=== PATIENT | female | born 1945 | race Caucasian/White ===

== ENCOUNTER 2023-05-28 20:54 | Emergency (ER) | payer MEDICARE, OTHER, SELFPAY ==
[2023-05-28 21:20] VITALS: BP 227/124
[2023-05-28 21:28] VITALS: BP 153/96
[2023-05-28 21:54] VITALS: BP 189/104
[2023-05-28 22:00] VITALS: BP 207/86
[2023-05-28 22:23] VITALS: BP 216/94
[2023-05-28 22:54] LABS: % Basophils 0.7 % (0-2); % Eosinophils 1.4 % (0-6); % Immature Granulocytes 0.3 % (0-0.5); % Lymphocytes 15.1 % (20.5-51.1); % Monocytes 5.8 % (1.7-9.3); % Neutrophils 76.7 % (42.2-75.2); Absolute Basophils 0.1 10^3/uL (0-0.2); Absolute Eosinophils 0.1 10^3/uL (0-0.7); Absolute Lymphocytes 1.5 10^3/uL (1.2-3.4); Absolute Monocytes 0.6 10^3/uL (0.1-0.6); Absolute Neutrophils 7.9 10^3/uL (1.4-6.5); Hematocrit 40.4 % (37.0-47.0); Hemoglobin 13.5 g/dL (12.0-16.0); Mean Corp Hgb Conc. 33.4 g/dL (33.0-37.0); Mean Corpuscular Hgb 30.4 pg (27.0-31.0); Mean Platelet Volume 8.3 fL (7.4-10.4); Nucleated Red Blood Cells % 0 %; Platelet Count 260 10^3/uL (130-400); Red Blood Cell Count 4.44 10^6/uL (4.20-5.40); Red Cell Dist. Width 13.7 % (11.5-14.5); White Blood Cell Count 10.2 10^3/uL (4.8-10.8)
[2023-05-28 23:00] VITALS: BP 175/97
[2023-05-28 23:11] LABS: ALT (SGPT) 16 U/L (0-35); AST (SGOT) 27 U/L (14-36); Albumin 4.6 g/dl (3.5-5.0); Alkaline Phosphatase 66 U/L (38-126); Blood Urea Nitrogen 16 mg/dl (7-17); Calcium 9.5 mg/dl (8.4-10.2); Carbon Dioxide 26 mmol/L (22-30); Chloride 103 mmol/L (98-107); Glucose 123 mg/dl (70-99); Potassium 3.9 mmol/L (3.5-5.1); Sodium 136 mmol/L (135-145); Total Bilirubin 0.6 mg/dl (0.2-1.3); Total Protein 7.5 g/dl (6.3-8.2); eGFR > 60.00
[2023-05-28 23:19] LABS: Troponin I < 0.012 ng/ml
--- NOTE | 2023-05-28 23:34 | ED.GENMED ---
History of Present Illness
<CINDY Ramirez - Last Filed: 05/29/23 01:46>
General
Chief Complaint: Nose Bleed
Source: patient
Exam Limitations: none and clinical condition
Time Seen by Provider: 05/28/23 23:16
Nursing documentation reviewed up to this point in time: agreed with
Travel History
Have you had any contact with someone who has COVID-19?: No
Do you have any symptoms of coronavirus? Fever > 100 degrees, chills, cough, shortness of breath, sore throat, loss of taste or smell, muscle aches, or headache?: No
History of Present Illness
History of Present Illness:
This is a 77 year old female, with a PMH of CAD, HTN, hypothyroidism, and GERD, who presents to the ED c/o nosebleed x 4 hours. Pt states her nose was bleeding consistently for about 4 hours, but it just stopped bleeding a few minutes ago. She was
holding pressure, using ice, and had a nasal tampon in place. She states initially the blood was coming from the left side of her nose but then began coming from the right side as well. She adds that she was swallowing blood which was making her
feel nauseous. She also states she developed epigastric pain 30 minutes ago which she thinks may be due to her reflux or due to the blood. Pt adds that she woke up with a sore throat this morning and she has been taking zinc, vitamin C, and tylenol,
with her last dose at 5 pm. She denies any congestion, SOB, cough, nose pain, GAMBOA, or abdominal pain. She has never experienced a nosebleed like this before.
Pt takes aspirin daily. She denies any alcohol, drug or tobacco use.
Past History
<CINDY Ramirez - Last Filed: 05/29/23 01:46>
Past History
ED Past Medical History: CAD, HTN, Hypercholesterolemia and Hypothyroidism
ED Past Surgical History: Cardiac (cardiac stent LAD), Cholecystectomy, Gynecological (b/l oophorectomy) and Other (hernia)
Patient has exhibited threatening behavior?: No
Social History
Tobacco: Non-smoker
Alcohol: None
Drug: None
Review of Systems
<Fridamarta CINDY Alonso - Last Filed: 05/29/23 01:46>
Review of Systems
Allergies reviewed?: Yes
All Other Systems: ROS reviewed and negative except as documented in HPI and ROS
Constitutional: Reports no symptoms
EENT: Reports sore throat and other (denies congestion or nasal pain)
Respiratory: Reports no symptoms; Denies cough or trouble breathing
Cardiac: Reports no symptoms
ABD/GI: Reports abdominal pain (epigastric pain) and nausea; Denies vomiting, diarrhea or constipated
: Reports no symptoms
Musculoskeletal: Reports no symptoms
Skin: Reports no symptoms
Neurological: Reports no symptoms; Denies headache
Hematologic/Lymphatic: Reports bleeding (nose)
Psychiatric: Reports no symptoms
Phy Exam
<Nery Alonso [facility] - Last Filed: 05/29/23 01:46>
General Physical Exam
General Presentation: mild distress
General age: appears stated age
General Skin: warm and dry
General Habitus: normal
General Mental: alert
General Hydration: dry mucous membranes
ENT Exam
ENT Exam: neck supple, normocephalic, swallowing well and other (dried blood and clots present in b/l nares. R nare view obstructed due to blood. Pt refused exam on left nare due to packing in place)
Eye Exam
Eye Exam: PERRL
Cardiovascular Exam
Cardiovascular Exam: regular rate/rhythm, no edema, no murmur and normal peripheral pulses
Heart Sounds: normal
Pulmonary Exam
Pulmonary Exam: lungs clear, no respiratory distress, no rales, no crackles, no rhonchi, no wheezing and no cough
Oxygen Status: room air
Gastrointestinal Exam
Gastrointestinal Exam: normal bowel sounds, soft, non distended and tender (mild tenderness to palpation epigastric region)
Neurological Exam
Neurological Exam: alert and oriented x3
Musculoskeletal Exam
Musculoskeletal Exam: full ROM and no edema
Skin Exam
Skin Exam: normal color and warm/dry
Psychiatric Exam
Psychiatric Exam: normal mood/affect
Course
<CINDY Ramirez - Last Filed: 05/29/23 01:46>
Orders/Labs/Results
Orders:
Orders
05/28/23 21:06
Electrocardiogram (*1) Urgent
Reason for Study: Tachycardia
EKG- Treatment ONCE
05/28/23 22:22
EKG [Electrocardiogram (*1)] Urgent
Reason for Study: Tachycardia
EKG- Treatment ONCE
05/28/23 22:48
Complete Blood Count/With Diff Urgent
Comprehensive Metabolic Panel Urgent
Troponin I Urgent
05/28/23 23:35
EKG [Electrocardiogram (*1)] Urgent
Reason for Study: Abdominal Pain
05/29/23 01:01
Phenylephrine 1% Extra Strengt [Jamey-Synephrine 1% Nasal [place]] See Dose Instructions NASAL Q4HPRN STA
05/29/23 01:07
Phenylephrine 0.5% Regular Spr [Jamey-Synephrine 0.5% Nasal [place]] 1 spray .ROUTE .STK-MED ONE
05/29/23 01:08
Phenylephrine 0.5% Regular Spr [Jamey-Synephrine 0.5% Nasal [place]] 2 spray NASAL NOW STA
Abnormal Lab Results
05/28/23
22:48
Absolute Neuts (auto) 7.9 H 10^3/uL
(1.4-6.5)
Neutrophils % 76.7 H %
(42.2-75.2)
Lymphocytes % 15.1 L %
(20.5-51.1)
Glucose 123 H mg/dl
(70-99)
05/28/23 22:48
05/28/23 22:48
Vital Signs
Initial and Last Documented VS:
Initial Vital Signs
Pulse Resp Pulse Ox
119 20 96
05/28/23 21:00 05/28/23 21:00 05/28/23 21:00
Last Documented Vital Signs
Pulse Resp BP Pulse Ox
99 17 165/84 98
05/29/23 01:00 05/29/23 00:45 05/29/23 00:00 05/28/23 21:30
<Javon Marquis, - Last Filed: 05/29/23 01:11>
Orders/Labs/Results
Orders:
Orders
05/28/23 21:06
Electrocardiogram (*1) Urgent
Reason for Study: Tachycardia
EKG- Treatment ONCE
05/28/23 22:22
EKG [Electrocardiogram (*1)] Urgent
Reason for Study: Tachycardia
EKG- Treatment ONCE
05/28/23 22:48
Complete Blood Count/With Diff Urgent
Comprehensive Metabolic Panel Urgent
Troponin I Urgent
05/28/23 23:35
EKG [Electrocardiogram (*1)] Urgent
Reason for Study: Abdominal Pain
05/29/23 01:01
Phenylephrine 1% Extra Strengt [Jamey-Synephrine 1% Nasal [place]] See Dose Instructions NASAL Q4HPRN STA
05/29/23 01:07
Phenylephrine 0.5% Regular Spr [Jamey-Synephrine 0.5% Nasal [place]] 1 spray .ROUTE .STK-MED ONE
05/29/23 01:08
Phenylephrine 0.5% Regular Spr [Jamey-Synephrine 0.5% Nasal [place]] 2 spray NASAL NOW STA
Abnormal Lab Results
05/28/23
22:48
Absolute Neuts (auto) 7.9 H 10^3/uL
(1.4-6.5)
Neutrophils % 76.7 H %
(42.2-75.2)
Lymphocytes % 15.1 L %
(20.5-51.1)
Glucose 123 H mg/dl
(70-99)
05/28/23 22:48
05/28/23 22:48
Vital Signs
Initial and Last Documented VS:
Initial Vital Signs
Pulse Resp Pulse Ox
119 20 96
05/28/23 21:00 05/28/23 21:00 05/28/23 21:00
Last Documented Vital Signs
Pulse Resp BP Pulse Ox
99 17 165/84 98
05/29/23 01:00 05/29/23 00:45 05/29/23 00:00 05/28/23 21:30
<CINDY Ramirez - Last Filed: 05/29/23 01:46>
*Critical Care Note
Total Time (30-74mins, 75-104mins- exclusive of procedures): Not Applicable
ED Attending Note
<CINDY Ramirez - Last Filed: 05/29/23 01:46>
-
Portions of this chart may have been created with voice recognition software.� Occasional wrong word or��sound alike� substitutions may have occurred due to the inherent limitations of voice recognition software.
<Javon Marquis DO - Last Filed: 05/29/23 01:11>
ED Attending Note
Patient seen and examined by attending physician: Yes
I performed the substantive portion of visit, reviewed & personally made and approve the management plan that is documented in note by myself or CHER.: Yes
ED Attending Note:
Pleasant 77-year-old female who presents with left anterior epistaxis. She suffered from nosebleed approximate 30 minutes prior to arrival. She is not on any blood thinners. She is hypertensive and does have tachycardia. She did have some
palpitations. Denies any trauma. Bleeding stopped upon arrival. Thorough inspection of the left nare does not show any clotting. I did use cotton tip applicators to try to clean the lyn of the blood and determine the source of the bleeding. I
was unable to locate the etiology of the bleeding. Patient states that bleeding has stopped. Patient was seen in conjunction with the PA student. I have reviewed and agree with the history and treatment plan presented. On my independent physical
exam, patient is awake, alert, and oriented x3. Left nostril has dried blood in it. Heart is regular rate rhythm. Lungs are clear to auscultation bilaterally without wheezes rales or rhonchi. Abdomen is soft without tenderness to palpation.
Reviewed lab work and physical exam findings with patient and son. They are both trained medical equipment technician. Patient wishes to be discharged. Did discuss the negative troponin and the atrial fibrillation to sinus tachycardia EKG change. She
will follow-up with Dr. Morton her mixing and dispensing supervisor. They do not wish to have a repeat troponin at this time.
Discharge Plan
Departure
Patient Disposition: Home (Routine Discharge)
Date of Disposition: 05/29/23
Time of Disposition: 01:02
Patient with high blood pressure during this ER visit?: Yes
Condition: Good
Discharge Problem:
Acute anterior epistaxis, Hypertension
Instructions: Nosebleeds (DC), BLOOD PRESSURE
Prescriptions:
No Action
levothyroxine 100 mcg Tablet
100 mcg PO DAILY
hydrochlorothiazide 25 mg Tablet
25 mg PO DAILY
losartan 100 mg Tablet
100 mg PO DAILY
aspirin 81 mg Tablet,Chewable
81 mg PO DAILY
coenzyme Q10 [Co Q-10] 200 mg Capsule
200 mg PO DAILY
omega 0-hdg-grq-fish oil [Fish Oil] 60-90-500 mg Capsule
1 cap PO DAILY
Probiotic 3 billion cell Capsule
3,000 mmu cells PO DAILY
calcium
1 tab PO DAILY
Patient Comments:
BRAND-OSTEO APPITATE
Black seed oil
1,000 mg PO DAILY
cholecalciferol (vitamin D3) [Vitamin D3] 25 mcg (1,000 unit) Tablet
25 mcg PO DAILY
Versabase Cream Cream
0.25 applic MISCELLANEOUS .2XWEEK
magnesium oxide 400 mg magnesium Tablet
400 mg PO DAILY
atorvastatin 40 mg tablet
40 mg PO QPM Qty: 90 10RF
clopidogrel [clopidogrel] 75 mg tablet
75 mg PO DAILY Qty: 90 10RF
pantoprazole [pantoprazole] 40 mg tablet,delayed release (DR/EC)
40 mg PO DAILY Qty: 90 10RF
nitroglycerin [nitroglycerin] 0.4 mg tablet, sublingual
0.4 mg sublingual [id number] PRN (Reason: chest pain) Qty: 25 5RF
amlodipine 5 mg tablet
5 mg PO DAILY Qty: 90 5RF
Referrals:
Marshall Fitch MD [Family Provider] -
Jett Weaver MD [Active] -
Avery Randolph MD [Active] -
Activity Restrictions/Additional Instructions:
Please use the Jamey-Synephrine as discussed. Use the clamp should the bleeding started again.
It was a pleasure meeting you and taking part in your care. We hope for your continued healing and wellness.
Please read discharge instructions in their entirety. However, they are for general education and may not describe your exact diagnosis at discharge. Information on your ER visit and medical conditions were discussed with you along with appropriate
follow up information...
If indicated, please take your medications as instructed and indicated on discharge paperwork.
Please schedule a follow up appointment as directed. Call to schedule an appointment
Please return to the emergency department with ANY change in, persisting, or worsening of symptoms. If any of your symptoms do not improve, or persist, or become more severe within 6-12 hours, please return to the emergency department for further
care.
Please return to the emergency department if you develop a headache, neck pain/stiffness, fever greater than 100.4F, chest pain, shortness of breath, persistent nausea, vomiting, slurred speech, difficulty walking, numbness/tingling, weakness, signs
of infection or any other symptoms that are worrisome to you.
If you have any questions or concerns please do not hesitate to call the Hospital at or E-mail me directly at [email or web address]
Interventions
Interventions:
*Risk Screen - Suicide Last Done: 05/28/23 21:20
*General Assessment Last Done: 05/28/23 21:20
*Neglect/Abuse Screening Last Done: 05/28/23 21:20
ED- Fall Risk Assessment Last Done: 05/29/23 01:16
*ED COVID-19 Vaccine History Last Done: 05/28/23 21:28
*Nursing Disposition Last Done: 05/29/23 01:16
ED-EENT Assessment Last Done: 05/28/23 21:40
Discharge Date and Time
Discharge Date/Time: 05/29/23 01:18
[2023-05-29] VITALS: BP 165/84
[2023-05-29] MEDS: NEO-SYNEPHRINE 0.5% NASAL SPRAY 2 SPRAY NASAL (01:09)
== END 2023-05-29 01:18 | disposition home or self-care (01) ==
LOC: EMR 20:54
PROVIDERS: Emergency Medicine; EMERGENCY PHYSICIAN Student in an Organized Health Care Education/Training Program; FAMILY PHYSICIAN Family Medicine
DX: R04.0 Epistaxis (principal); I10 Essential (primary) hypertension; I25.10 Atherosclerotic heart disease of native coronary artery without angina pectoris; E03.9 Hypothyroidism, unspecified; K21.9 Gastro-esophageal reflux disease without esophagitis; E78.00 Pure hypercholesterolemia, unspecified; Z79.82 Long term (current) use of aspirin; Z90.49 Acquired absence of other specified parts of digestive tract; Z90.722 Acquired absence of ovaries, bilateral; Z95.5 Presence of coronary angioplasty implant and graft
CPT/HCPCS: 99283; 80053; 84484; 85025; 93005

== ENCOUNTER → 2023-07-01 16:21 | Outpatient (REF) | payer MEDICARE, OTHER, SELFPAY ==
[2023-07-01 18:40] LABS: TSH 1.12 uIU/ml (0.47-4.68)
== END ==
LOC: REG 16:21
PROVIDERS: ATTENDING PHYSICIAN Family Medicine
DX: E03.9 Hypothyroidism, unspecified (principal)
CPT/HCPCS: 36415; 84443

== ENCOUNTER → 2023-07-07 08:31 | Outpatient (REF) | payer MEDICARE, OTHER, SELFPAY | LOC: DHCBC/DCA 08:31 | PROVIDERS: ATTENDING PHYSICIAN Nurse Practitioner; FAMILY PHYSICIAN Family Medicine | DX: R06.09 Other forms of dyspnea (principal) | CPT/HCPCS: 78452; 93017; A9500 ==

== ENCOUNTER → 2023-08-17 10:56 | Outpatient (REF) | payer MEDICARE, OTHER, SELFPAY | LOC: HWRAD 10:56 | PROVIDERS: ATTENDING PHYSICIAN Family Medicine | DX: R91.1 Solitary pulmonary nodule (principal) | CPT/HCPCS: 71250 ==

== ENCOUNTER → 2023-09-07 13:51 | Outpatient (REF) | payer MEDICARE, OTHER, SELFPAY | LOC: HWRAD 13:51 | PROVIDERS: ATTENDING PHYSICIAN Obstetrics & Gynecology; FAMILY PHYSICIAN Family Medicine; REFERRING PHYSICIAN Chiropractor | DX: M54.50 Low back pain, unspecified (principal) | CPT/HCPCS: 72110 ==

== ENCOUNTER → 2024-04-01 13:35 | Outpatient (REF) | payer MEDICARE, OTHER, SELFPAY | LOC: HWWDC 13:35 | PROVIDERS: ATTENDING PHYSICIAN Obstetrics & Gynecology Gynecology; FAMILY PHYSICIAN Family Medicine | DX: Z12.31 Encounter for screening mammogram for malignant neoplasm of breast (principal); E03.9 Hypothyroidism, unspecified | CPT/HCPCS: 36415; 84443 ==

== ENCOUNTER → 2024-07-08 07:20 | Outpatient (REF) | payer MEDICARE, OTHER, SELFPAY ==
[2024-07-08 09:13] LABS: ALT (SGPT) 16 U/L (0-35); AST (SGOT) 21 U/L (14-36); HDL Cholesterol 72 mg/dl; LDL Cholesterol, Calculated 153 mg/dl; Total Cholesterol 238 mg/dl (50-199); Triglyceride 69 mg/dl (10-149); Very Low Density Lipoprotein 13 mg/dl (0-30)
== END ==
LOC: REG 07:20
PROVIDERS: ATTENDING PHYSICIAN Internal Medicine
DX: I25.10 Atherosclerotic heart disease of native coronary artery without angina pectoris (principal); E78.00 Pure hypercholesterolemia, unspecified; Z78.9 Other specified health status
CPT/HCPCS: 36415; 80061; 84450; 84460

== ENCOUNTER → 2024-09-16 07:25 | Outpatient (REF) | payer MEDICARE, OTHER, SELFPAY ==
[2024-09-16 08:26] LABS: % Basophils 0.8 % (0-2); % Eosinophils 3.6 % (0-6); % Immature Granulocytes 0.3 % (0-0.5); % Lymphocytes 32.8 % (20.5-51.1); % Monocytes 6.5 % (1.7-9.3); Absolute Basophils 0.1 10^3/uL (0-0.2); Absolute Eosinophils 0.2 10^3/uL (0-0.7); Absolute Monocytes 0.4 10^3/uL (0.1-0.6); Absolute Neutrophils 3.4 10^3/uL (1.4-6.5); Hematocrit 41.4 % (37.0-47.0); Hemoglobin 13.5 g/dL (12.0-16.0); Mean Corp Hgb Conc. 32.6 g/dL (33.0-37.0); Mean Corpuscular Hgb 30.1 pg (27.0-31.0); Mean Corpuscular Volume 92.2 fL (81.0-99.0); Mean Platelet Volume 8.8 fL (7.4-10.4); Nucleated Red Blood Cells % 0 %; Platelet Count 293 10^3/uL (130-400); Red Blood Cell Count 4.49 10^6/uL (4.20-5.40); Red Cell Dist. Width 13.6 % (11.5-14.5); White Blood Cell Count 6.2 10^3/uL (4.8-10.8)
[2024-09-16 09:30] LABS: ALT (SGPT) 15 U/L (0-35); AST (SGOT) 19 U/L (14-36); HDL Cholesterol 70 mg/dl; LDL Cholesterol, Calculated 165 mg/dl; Magnesium 2.2 mg/dl (1.6-2.3); Total Cholesterol 256 mg/dl (50-199); Triglyceride 105 mg/dl (10-149); Very Low Density Lipoprotein 21 mg/dl (0-30)
[2024-09-16 12:00] LABS: Albumin 4.4 g/dl (3.5-5.0); Alkaline Phosphatase 64 U/L (38-126); Blood Urea Nitrogen 13 mg/dl (7-17); Calcium 10.2 mg/dl (8.4-10.2); Carbon Dioxide 27 mmol/L (22-30); Chloride 109 mmol/L (98-107); Glucose 101 mg/dl (70-99); Potassium 4.6 mmol/L (3.5-5.1); Sodium 143 mmol/L (135-145); Total Bilirubin 0.8 mg/dl (0.2-1.3); eGFR > 60.00
== END ==
LOC: REG 07:25
PROVIDERS: ATTENDING PHYSICIAN Internal Medicine; FAMILY PHYSICIAN Family Medicine
DX: E78.00 Pure hypercholesterolemia, unspecified (principal)
CPT/HCPCS: 36415; 80053; 80061; 83735; 85025

== ENCOUNTER 2024-09-20 17:46 | Emergency (ER) | payer MEDICARE, OTHER, SELFPAY ==
[2024-09-20] VITALS (7 sets, daily range): BP systolic 156–188; BP diastolic 77–123; BMI 25.3
--- NOTE | 2024-09-20 19:05 | ED.GENMED ---
History of Present Illness
General
Chief Complaint: Cardiac Symptoms
Time Seen by Provider: 09/20/24 18:10
History of Present Illness
History of Present Illness:
78-year-old female with history of hypertension, CAD with 1 stent, hyperlipidemia presenting to the emergency department for palpitations. Patient reports intermittent palpitations for the past 3 weeks. She notes that throughout the day today,
heart rate has been fluctuating, with heart rates in the low 100s. Denies any known history of atrial fibrillation or arrhythmias. She is on lisinopril and amlodipine for her blood pressure. Her provisioning specialist is Dr. Weaver. Denies any associated
chest pain or difficulty breathing. Denies fever or sick contacts. Denies any lower extremity edema. Denies additional acute medical complaints
Past History
Past History
ED Past Medical History: CAD, HTN, Hypercholesterolemia and Hypothyroidism
ED Past Surgical History: Cardiac (cardiac stent LAD), Cholecystectomy, Gynecological (b/l oophorectomy) and Other (hernia)
Patient has exhibited threatening behavior?: No
Social History
Tobacco: Non-smoker
Alcohol: None
Drug: None
Phy Exam
Physical Exam
Physical Exam:
General: Well-appearing, no clinical signs of dehydration, nontoxic and in no acute distress
HEENT: protecting airway
Neck: appears supple
CV: Normal heart rate, regular rhythm
Resp: No accessory muscle use, no increased work of breathing, lungs clear to auscultation bilaterally
Abd: Soft and non-distended, no tenderness to palpation
Extremities: No deformities, no swelling
Neuro: alert, no focal neurologic deficit
: deferred
Rectal: deferred
Psych: Normal affect
Skin: Intact
Scores
[id number] Score for Afib Stroke Risk
Age in Years (65=0, 65-74=1, >/=75=2): > or = 75
Sex (Female=+1): Female
Congestive Heart Failure History (Yes=+1): No
Hypertension History (Yes=+1): Yes
Stroke/TIA/Thromboembolism History (Yes=+2): No
Vascular Disease History (Yes=+1): No
Diabetes Mellitus (Yes=+1): No
Score: 4
Anticoagulation Recommendations: Recommend anticoagulation (as validated in nonvalvular fib)
Course
Orders/Labs/Results
Orders:
Orders
09/20/24 17:51
EKG [Electrocardiogram (*1)] Urgent
Reason for Study: Palpitations
EKG- Treatment ONCE
09/20/24 18:49
Diltiazem HCl [Cardizem] 10 mg IV NOW STA
09/20/24 19:13
Complete Blood Count/With Diff Urgent
Comprehensive Metabolic Panel Urgent
Prothrombin Time Urgent
Troponin I Urgent
09/20/24 19:13
Vital Signs
Initial and Last Documented VS:
Initial Vital Signs
Temp Pulse Resp BP Pulse Ox
97.7 F 120 17 188/123 97
09/20/24 17:49 09/20/24 17:49 09/20/24 17:49 09/20/24 17:49 09/20/24 17:49
Last Documented Vital Signs
Temp Pulse Resp BP Pulse Ox
97.7 F 108 17 156/86 97
09/20/24 17:49 09/20/24 18:25 09/20/24 17:49 09/20/24 18:27 09/20/24 18:25
MDM/Problems Addressed
MDM/Problems Addressed:
78-year-old female presenting to the emergency department for palpitations. Vital signs on arrival significant for hypertension.
On exam patient is resting comfortably, no acute distress or discomfort. Initial EKG is reading atrial fibrillation. However while in examination room on monitor, patient appears to be going in and out of this rhythm, unclear if she is in atrial
fibrillation. However, heart rate is jumping from 80s to low 100s. Suspect etiology of her palpitations. Will plan for screening laboratory analysis and will also discuss with cardiology.
In discussion with Dr. Murphy, feels that patient's rhythm more consistent with sinus rhythm and slow atrial tachycardia. Advising against any present anticoagulation, however can start low-dose metoprolol to help decrease her symptoms. Labs are
otherwise unremarkable. Patient in agreement with this plan. Repeat EKG is showing a sinus rhythm, so in agreement that patient more likely has atrial tachycardia. Will start on 12.5 mg metoprolol. Otherwise feel stable for discharge with close
interval follow-up with cardiology for potential outpatient Holter monitor. Patient has an upcoming appointment on October 06, however encouraged that she call the office for potential earlier appointment. Return precautions discussed and patient
verbalized understanding
*EKG
Interpreted by ED Provider?: Yes
EKG Intrepretation Date: 09/20/24
EKG Intrepretation Time: 19:38
Interpretation: abnormal
Comparison EKG: changes noted
Heart Rate: 93
Rate: normal
Rhythm: a-fib
[place]: normal axis
QRS Pattern: normal QRS
Ischemia: no ischemia
*Critical Care Note
Total Time (30-74mins, 75-104mins- exclusive of procedures): Not Applicable
ED Attending Note
-
Portions of this chart may have been created with voice recognition software.� Occasional wrong word or��sound alike� substitutions may have occurred due to the inherent limitations of voice recognition software.
Discharge Plan
Departure
Prescriptions:
No Action
levothyroxine 100 mcg Tablet
100 mcg PO DAILY
hydrochlorothiazide 25 mg Tablet
25 mg PO DAILY
losartan 100 mg Tablet
100 mg PO DAILY
aspirin 81 mg Tablet,Chewable
81 mg PO DAILY
coenzyme Q10 [Co Q-10] 200 mg Capsule
200 mg PO DAILY
omega 7-abt-cpq-fish oil [Fish Oil] 60-90-500 mg Capsule
1 cap PO DAILY
Probiotic 3 billion cell Capsule
3,000 mmu cells PO DAILY
calcium
1 tab PO DAILY
Patient Comments:
BRAND-OSTEO APPITATE
Black seed oil
1,000 mg PO DAILY
cholecalciferol (vitamin D3) [Vitamin D3] 25 mcg (1,000 unit) Tablet
25 mcg PO DAILY
Versabase Cream Cream
0.25 applic MISCELLANEOUS .2XWEEK
magnesium oxide 400 mg magnesium Tablet
400 mg PO DAILY
atorvastatin 40 mg tablet
40 mg PO QPM Qty: 90 10RF
clopidogrel [clopidogrel] 75 mg tablet
75 mg PO DAILY Qty: 90 10RF
pantoprazole [pantoprazole] 40 mg tablet,delayed release (DR/EC)
40 mg PO DAILY Qty: 90 10RF
nitroglycerin [nitroglycerin] 0.4 mg tablet, sublingual
0.4 mg sublingual [id number] PRN (Reason: chest pain) Qty: 25 5RF
amlodipine 5 mg tablet
5 mg PO DAILY Qty: 90 5RF
Referrals:
Scooby Zamora DO [Family Provider, Family Practice]
Interventions
Interventions:
*Risk Screen - Suicide Last Done: 09/20/24 17:51
*General Assessment Last Done: 09/20/24 17:51
*Neglect/Abuse Screening Last Done: 09/20/24 17:51
*ED COVID-19 Vaccine History Last Done: 09/20/24 17:51
ED- Pulmonary Assessment Last Done: 09/20/24 18:50
ED- Cardiac Assessment Last Done: 09/20/24 18:50
Discharge Date and Time
Print Language: BULGARIAN
[2024-09-20 19:19] LABS: % Basophils 0.5 % (0-2); % Eosinophils 2.5 % (0-6); % Immature Granulocytes 0.4 % (0-0.5); % Lymphocytes 24.6 % (20.5-51.1); % Monocytes 6.2 % (1.7-9.3); % Neutrophils 65.8 % (42.2-75.2); Absolute Eosinophils 0.2 10^3/uL (0-0.7); Absolute Lymphocytes 2.1 10^3/uL (1.2-3.4); Absolute Monocytes 0.5 10^3/uL (0.1-0.6); Absolute Neutrophils 5.6 10^3/uL (1.4-6.5); Hematocrit 38.3 % (37.0-47.0); Hemoglobin 13.1 g/dL (12.0-16.0); Mean Corp Hgb Conc. 34.2 g/dL (33.0-37.0); Mean Corpuscular Hgb 30.5 pg (27.0-31.0); Mean Corpuscular Volume 89.3 fL (81.0-99.0); Mean Platelet Volume 8.4 fL (7.4-10.4); Nucleated Red Blood Cells % 0 %; Platelet Count 257 10^3/uL (130-400); Red Blood Cell Count 4.29 10^6/uL (4.20-5.40); Red Cell Dist. Width 13.9 % (11.5-14.5); White Blood Cell Count 8.5 10^3/uL (4.8-10.8)
[2024-09-20 19:31] LABS: INR 0.91; PT 12.5 Sec (11.4-14.6)
[2024-09-20 19:43] LABS: ALT (SGPT) 17 U/L (0-35); AST (SGOT) 23 U/L (14-36); Albumin 4.6 g/dl (3.5-5.0); Alkaline Phosphatase 65 U/L (38-126); Blood Urea Nitrogen 9 mg/dl (7-17); Carbon Dioxide 23 mmol/L (22-30); Chloride 110 mmol/L (98-107); Estimated Creatinine Clearance 52 ml/min; Glucose 113 mg/dl (70-99); Potassium 3.6 mmol/L (3.5-5.1); Sodium 142 mmol/L (135-145); Total Bilirubin 0.5 mg/dl (0.2-1.3); Total Protein 7.1 g/dl (6.3-8.2); eGFR > 60.00
[2024-09-20 19:53] LABS: Troponin I < 0.012 ng/ml
[2024-09-20 20:02] LABS: APTT 25.3 Sec (23.4-35.0)
[2024-09-20] MEDS: LOPRESSOR 12.5 MG PO (20:48)
== END 2024-09-20 21:01 | disposition home or self-care (01) ==
LOC: EMR 17:46
PROVIDERS: EMERGENCY PHYSICIAN Student in an Organized Health Care Education/Training Program; FAMILY PHYSICIAN Family Medicine
DX: I47.19 Other supraventricular tachycardia (principal); I10 Essential (primary) hypertension; E03.9 Hypothyroidism, unspecified; E78.00 Pure hypercholesterolemia, unspecified; I25.10 Atherosclerotic heart disease of native coronary artery without angina pectoris; Z95.5 Presence of coronary angioplasty implant and graft
CPT/HCPCS: 99284; 80053; 84484; 85025; 85610; 85730; 93005

== ENCOUNTER → 2024-11-14 14:45 | Outpatient (REF) | payer MEDICARE, OTHER, SELFPAY | LOC: HWRCS 14:45 | PROVIDERS: ATTENDING PHYSICIAN Internal Medicine; FAMILY PHYSICIAN Family Medicine | DX: I47.10 Supraventricular tachycardia, unspecified (principal); I25.10 Atherosclerotic heart disease of native coronary artery without angina pectoris | CPT/HCPCS: 93306 ==

== ENCOUNTER → 2025-01-21 07:48 | Outpatient (REF) | payer MEDICARE, OTHER, SELFPAY ==
[2025-01-21 09:34] LABS: Blood Urea Nitrogen 13 mg/dl (7-17); Calcium 10.1 mg/dl (8.4-10.2); Carbon Dioxide 30 mmol/L (22-30); Chloride 104 mmol/L (98-107); Glucose 93 mg/dl (70-99); Potassium 4.7 mmol/L (3.5-5.1); Sodium 139 mmol/L (135-145); eGFR > 60.00
== END ==
LOC: REG 07:48
PROVIDERS: ATTENDING PHYSICIAN Internal Medicine; FAMILY PHYSICIAN Family Medicine
DX: I10 Essential (primary) hypertension (principal)
CPT/HCPCS: 80048